=== PATIENT | male | born 1990 | race African-American/Black ===

== ENCOUNTER 2020-06-12 06:53 | Emergency (ER) | payer SELFPAY ==
[2020-06-12] MEDS ORDERED: cefTRIAXone\\ROCEPHIN 500 MG VIAL ONE (07:41)
[2020-06-12] MEDS ORDERED: Lidocaine 1% PF 5 ML VIAL ONE (07:41)
[2020-06-12 07:57] LABS: Bilirubin Negative (Negative); Blood, Urine 1+ (Negative); Clarity Turbid (Clear); Glucose, Urine (Dipstick) Normal (Negative); Ketone, Urine Trace mg/dL (Negative); Leukocyte 500 Leu/uL (Negative); Nitrite Negative (Negative); Protein, Urine (Dipstick) 30 mg/dL (Neg-Trace); Specific Gravity, Urine 1.032 (1.002-1.036); Squamous Epithelial None Seen HPF (0-3); Urobilinogen 3 mg/dL (Less than 2); WBC/HPF Greater than 50 HPF (0-3); pH, Urine 5.5 (5.0-9.0)
[2020-06-12 08:12] LABS: Bacteria/HPF 2+ HPF (None Seen)
[2020-06-13 21:52] LABS: Chlam.trachomatis by PCR,Urine Not Detected (NotDetected)
== END 2020-06-12 08:11 | disposition home or self-care (01) ==
LOC: ERS 06:53
DX: N34.1 Nonspecific urethritis (principal); F17.210 Nicotine dependence, cigarettes, uncomplicated
CPT/HCPCS: 81003; 81015; 87086; 87491; 87591; 96372; 99283; J0696

== ENCOUNTER 2020-07-05 08:18 | Emergency (ER) | payer SELFPAY ==
[2020-07-05 08:37] LABS: Bacteria/HPF None Seen HPF (None Seen); Bilirubin Negative (Negative); Blood, Urine Negative (Negative); Clarity Clear (Clear); Glucose, Urine (Dipstick) Normal (Negative); Ketone, Urine Trace mg/dL (Negative); Leukocyte 500 Leu/uL (Negative); Nitrite Negative (Negative); Protein, Urine (Dipstick) 30 mg/dL (Neg-Trace); Specific Gravity, Urine 1.036 (1.002-1.036); Squamous Epithelial 0-3 HPF (0-3); Urobilinogen Normal mg/dL (Less than 2); WBC/HPF Greater than 50 HPF (0-3)
[2020-07-07 15:55] LABS: Chlam.trachomatis by PCR,Urine Not Detected (NotDetected)
== END 2020-07-05 08:56 | disposition home or self-care (01) ==
LOC: ERS 08:18
DX: Z20.2 Contact with and (suspected) exposure to infections with a predominantly sexual mode of transmission (principal); F17.210 Nicotine dependence, cigarettes, uncomplicated
CPT/HCPCS: 81003; 81015; 87491; 87591; 99281; J7620

== ENCOUNTER 2020-10-13 15:57 | Emergency (ER) | payer SELFPAY ==
[2020-10-13 21:43] LABS: SARS-CoV-2 PCR by NAA DETECTED (NotDetected)
== END 2020-10-13 16:52 | disposition home or self-care (01) ==
LOC: ERS 15:57
DX: U07.1 COVID-19 (principal); F17.210 Nicotine dependence, cigarettes, uncomplicated
CPT/HCPCS: 87635; 99283; U0003; U0005